=== PATIENT | female | born 1990 | race Asian ===

== ENCOUNTER 2016-11-06 21:37 | Inpatient (IN) ==
[2016-11-07] MEDS ORDERED: ACETAMINOPHEN 325 MG TABLET PO PRN ×2 (00:01→12:20)
[2016-11-07] MEDS ORDERED: BUTORPHANOL 1 MG/ML VIAL IV PRN (00:01)
[2016-11-07] MEDS ORDERED: ONDANSETRON 4 MG/2 ML VIAL IV PRN ×2 (00:01→12:20)
[2016-11-07 01:02] LABS: Basophils % 0.2 % (0.0-0.8); Eosinophils # 0.1 10*3/uL (0.0-0.87); Eosinophils % 0.5 % (0.00-10.9); Hematocrit 31.6 VOL% (35.7-47.0); Hemoglobin 10.8 GM/DL (12.0-16.0); Immature Granulocytes % 0.5 %; Immature Granulocytes Absolute 0.05 #; Lymphocytes # 2.1 10*3/uL (1.4-4.0); Lymphocytes % 22.8 % (21.3-54.2); Mean Corpuscular HGB Conc 34.2 GM/DL (32-36); Mean Corpuscular Hemoglobin 29 PG (27-34); Mean Corpuscular Volume 85.6 FL (87-102); Mean Platelet Volume 10.2 FL (9.6-12.0); Monocytes # 0.7 10*3/uL (0.11-0.8); Monocytes % 7.9 % (1.7-12.7); Neutrophils # 6.4 10*3/uL (1.4-7.4); Neutrophils % 68.1 % (38.7-73.9); Platelet Count 309 10*3/uL (130-400); Red Blood Count 3.69 10*6/uL (3.8-5.5); Red Cell Distribution Width 13.2 % (9.3-17.3); White Blood Count 9.4 10*3/uL (4.5-13.71)
[2016-11-07 01:31] LABS: Alanine Aminotransferase 15 U/L (13-56); Albumin 2.8 G/DL (3.4-5.0); Alkaline Phosphatase 90 U/L (45-117); Aspartate Amino Transferase 19 U/L (0-37); Bilirubin,Total < 0.39 MG/DL (0.2-1.0); Blood Urea Nitrogen 15 MG/DL (7-18); Calcium 8.5 MG/DL (8.5-10.1); Glucose 74 MG/DL (74-106); Osmolality,Calculated 278.4 MOS/KG (273-304); Sodium 140 MMOL/L (136-145); Total Protein 6.9 G/DL (6.4-8.3)
[2016-11-07] MEDS ORDERED: OXYTOCIN/LR 20 UNIT/1,000 ML BAG IV ONE ×2 (04:47→12:20)
[2016-11-07] MEDS ORDERED: LACTATED RINGERS 1,000 ML IV SCH (05:00)
[2016-11-07] MEDS ORDERED: PROMETHAZINE 25 MG/1 ML VIAL IM ONE (07:48)
[2016-11-07] MEDS ORDERED: ePHEDrine 50 MG/ML AMP IV PRN (07:48)
[2016-11-07] MEDS ORDERED: FAMOTIDINE 20 MG/2 ML VIAL IV ONE (07:48)
[2016-11-07] MEDS ORDERED: CITRIC ACID/SODIUM CITRATE 30 ML UDCUP PO ONE (07:48)
[2016-11-07] MEDS ORDERED: fentaNYL 2 MCG/ROPIV 0.2% EPID 150 ML EPIDURAL SCH (07:48)
[2016-11-07] MEDS ORDERED: ONDANSETRON 4 MG/2 ML VIAL IV ONE (07:48)
[2016-11-07] MEDS ORDERED: diphenhydrAMINE 50 MG/1 ML VIAL IV PRN ×2 (07:48)
[2016-11-07] MEDS ORDERED: hydrOXYzine HCL 25 MG/1 ML VIAL IM PRN (07:48)
[2016-11-07] MEDS ORDERED: OXYTOCIN/LR 20 UNIT/1,000 ML BAG IV SCH (08:00)
[2016-11-07] MEDS ORDERED: ePHEDrine 50 MG/ML AMP ONE (08:12)
[2016-11-07] MEDS ORDERED: LIDOCAINE 1% 50 ML VIAL ONE (08:12)
--- NOTE | 2016-11-07 08:14 | OB/GYN History & Physical ---
History of Present Illness Chief complaint: at 38 weeks and polyhydramnios History of present illness: Ms. Valdovinos is a 26 year old female 1 para 0 who was seen in conjunction with Dr. Dominguez services in [place] for initially what appeared to be an irregular heartbeat on ultrasound and later polyhydramnios. She was worked up by Dr. Dominguez who followed with serial ultrasounds under the appropriate testing and found no etiology for any the above. She is consequently admitted for elective induction secondary to polyhydramnios Home Medications Medication Instructions Recorded Confirmed Type Pnv No.122/Iron/Folic Acid 1 tablet PO DAILY 11/06/16 11/06/16 History [ Multi Tablet] Allergies Allergy/AdvReac Type Severity Reaction Status Date / Time No Known Allergies Allergy Verified 11/07/16 00:00 12 point system: reviewed and no additional remarkable complaints except as stated Medical,Surgical,& Family Hx - Medical History Reproductive: History of: Ectopic (2014) No history of: Complication, Reproductive Problems - Surgical History Reproductive Surgeries: Patient denies;: Section - Family History Family History: Reports;: Family Diabetes, Family Hypertension Denies;: Family Anesthesia Reaction, Family Cancer, Family Heart Disease, Family Hematology, Family Psychiatric Problems, Family Stroke, Additional Family History - Social History Smoking Status: Never smoker Frequency of Alcohol Use: None Type of Drug Use: None 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 - Constitutional Vitals: Vital Signs Temp Pulse Resp BP Pulse Ox 11/07/16 04:00 98.1 F 86 18 125/83 11/06/16 21:44 98.5 F 104 H 20 129/87 99 General appearance: normal weight, no acute distress - Head Head exam: Present: normal inspection, normocephalic, atraumatic - Eye Eye exam: Present: EOMI Pupils: Present: ANGELI - Neck Neck exam: Present: normal inspection - Respiratory Respiratory exam: Present: clear to auscultation bilaterally - Breast Breasts: as per HPI Menstruation: as per HPI - Cardiovascular Cardiovascular exam: Present: regular rate and rhythm - GI/Abdominal GI/Abdominal exam: Present: normal bowel sounds - Extremities Exam Extremities exam: Present: normal inspection, normal capillary refill - Back Exam Back exam: Present: normal inspection - Neurological Exam Neurological exam: Present: alert, oriented X3 - Psychiatric Psychiatric exam: Present: normal affect, normal mood - Skin Skin exam: Present: normal color, warm Assessment and Plan (1) with 38 completed weeks gestation Status: Acute Current Visit: Yes (2) Polyhydramnios Status: Acute Current Visit: Yes (3) Elective induction of labor planned Status: Acute Current Visit: Yes Results - Labs CBC & BMP: 11/07/16 00:34 11/07/16 00:34 Quality Measures - VTE Contraindication to Pharmacological VTE Prophylaxis: Clinical assessment deems Pt at low risk, no prophalaxis needed
[2016-11-07 09:57] LABS: INR 0.9; PT Patient Result 9.7 SECS; Partial Thromboplastin Time 26.1 SECS (0-40)
[2016-11-07 10:25] LABS: Apearance,Urine CLEAR (Clear); Bacteria,Urine Occasional /HPF (Few); Bilirubin,Urine Negative (Negative); Blood, Urine Negative (Negative); Glucose,Urine (UA) Negative (Negative); Ketones,Urine Negative (Negative); Mucus,Urine Occasional /LPF (Occasional); Nitrite,Urine Negative (Negative); Protein,Urine Negative; RBC,Urine 1 /HPF (0-4); Urine Color Straw (Yellow); Urine Specific Gravity 1.005 (1.001-1.035); Urine Urobilinogen < 2.0 EU/DL (0.2-1.0); WBC,Urine 1 /HPF (0-6)
[2016-11-07] MEDS ORDERED: WITCH HAZEL PADS 100/JAR TOP PRN (12:20)
[2016-11-07] MEDS ORDERED: BISACODYL 10 MG SUPP RECTAL PRN (12:20)
[2016-11-07] MEDS ORDERED: BENZOCAINE 20%/MENTHOL 0.5% SPRAY 56 GM CAN TOP PRN (12:20)
[2016-11-07] MEDS ORDERED: oxyCODONE/ACETAMINOPHEN 5-325 MG TABLET PO PRN (12:20)
[2016-11-07] MEDS ORDERED: LANOLIN 50% CREAM 0.3 OZ TUBE TOP PRN (12:20)
[2016-11-07] MEDS ORDERED: HYDROCORTISONE 2.5% RECTAL CREAM 30 GM TUBE TOP PRN (12:20)
--- NOTE | 2016-11-07 12:20 | OB/GYN Progress Note ---
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 Mansfield dictating vaginal delivery And in LDR environment under sterile conditions, the patient progressed to completely dilated. She was allowed to push and under [epidural] anesthesia had a palate vacuum vaginal delivery of a live born [male] unweighed Apgars pending over a [second-degree midline episiotomy]. The 's nose and oropharynx were bulb and DeLee suctioned, and the infant had spontaneous cry after delivery. The cord was doubly clamped and cut and the was handed over to the pediatric team for care. Cord blood was obtained the placenta delivered spontaneously intact and IV Pitocin was done. There were no cervical tears. There were no periurethral tears. The second-degree midline episiotomy was repaired to monitor procedure in usual fashion under epidural anesthesia. Indication for vacuum was poor maternal expulsive effort. Presentation was occiput anterior was here degrees rotation at +3 station. The vacuum was disarticulated through the peritoneum anterior posterior shoulders were delivered without difficulty. There is noted be a nuchal cord 1 which was noted to be short and thin. Estimated blood loss was 250 mL. There were no complications. The bladder was emptied using a catheter prior to delivery. All sponge needle and instrument counts were correct 3 at the end of the delivery. The was taken to nursery in stable condition Exam LICENSED PRACTICAL NURSE INSTRUCTOR - Constitutional Vitals: Vital Signs Temp Pulse Resp BP Pulse Ox 11/07/16 04:00 98.1 F 86 18 125/83 11/06/16 21:44 98.5 F 104 H 20 129/87 99 Results - Labs CBC & BMP: 11/07/16 00:34 11/07/16 00:34
[2016-11-07] MEDS ORDERED: MEASLES/MUMPS/RUBELLA VACCINE 0.5 ML VIAL SUBCUT ONE (13:00)
[2016-11-07] MEDS ORDERED: DIPH/TET/ACEL PERT BOOSTER VACCINE 0.5 ML VIAL IM ONE (13:00)
[2016-11-07] MEDS ORDERED: RHO(D) IMMUNE GLOBULIN 300 MCG SYRINGE IM ONE (13:00)
[2016-11-07] MEDS: IBUPROFEN 800 MG TABLET PO PRN (16:00)
[2016-11-07] MEDS: DOCUSATE SODIUM 100 MG CAPSULE PO SCH (21:00)
[2016-11-07] MEDS: oxyCODONE/ACETAMINOPHEN 5-325 MG TABLET PO PRN (21:00)
[2016-11-08 04:49] LABS: Basophils % 0.1 % (0.0-0.8); Eosinophils # 0.1 10*3/uL (0.0-0.87); Eosinophils % 0.7 % (0.00-10.9); Hematocrit 27.2 VOL% (35.7-47.0); Hemoglobin 9.1 GM/DL (12.0-16.0); Immature Granulocytes % 0.6 %; Immature Granulocytes Absolute 0.08 #; Lymphocytes # 1.8 10*3/uL (1.4-4.0); Lymphocytes % 13.2 % (21.3-54.2); Mean Corpuscular HGB Conc 33.5 GM/DL (32-36); Mean Corpuscular Hemoglobin 29 PG (27-34); Mean Corpuscular Volume 86.9 FL (87-102); Mean Platelet Volume 9.9 FL (9.6-12.0); Monocytes % 6.9 % (1.7-12.7); Neutrophils # 10.8 10*3/uL (1.4-7.4); Neutrophils % 78.5 % (38.7-73.9); Platelet Count 213 10*3/uL (130-400); Red Blood Count 3.13 10*6/uL (3.8-5.5); Red Cell Distribution Width 13.5 % (9.3-17.3); White Blood Count 13.8 10*3/uL (4.5-13.71)
--- NOTE | 2016-11-08 07:50 | OB/GYN Progress Note ---
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: Subj Interval history: Patient is doing well she is eating ambulating and voiding She is afebrile and her vital signs are stable Her fundus is firm and contracted She has decreased lochia Assessment #1 day #1 doing well Plan continue present management with expected DC tomorrow Exam EDISCOVERY PROJECT MANAGER - Constitutional Vitals: Vital Signs Temp Pulse Resp BP Pulse Ox 11/08/16 07:41 97.6 F 94 H 16 124/87 99 11/08/16 03:59 98.5 F 106 H 20 124/85 100 11/07/16 23:52 97.8 F 106 H 20 118/73 99 11/07/16 19:47 97.7 F 86 18 115/63 97 11/07/16 17:10 93 H 18 118/78 98 11/07/16 16:10 98.3 F 102 H 18 124/87 98 11/07/16 15:10 91 H 18 117/85 98 11/07/16 14:40 89 18 117/77 98 11/07/16 14:10 98.0 F 89 18 117/74 98 Results - Labs CBC & BMP: 11/08/16 04:32 11/07/16 00:34
--- NOTE | 2016-11-08 07:53 | Discharge Summary ---
Hospital Course - Hospital Course Hospital Course: patient did well. She had quick return of bowel and bladder function. Joint afebrile and normotensive throughout her hospitalization. She is consequently discharged on postoperative day #2 on a regular diet Diagnosis - Discharge Diagnosis (1) with 38 completed weeks gestation Status: Acute (2) Polyhydramnios Status: Acute (3) Elective induction of labor planned Status: Acute Specialty Discharge - Follow Up or Referrals Discharge Plan - Discharge Data Disposition: Disch To Home/Self Care Condition at Discharge: Stable Discharge Diet: regular diet Activity: increase activity as tolerated, other (pelvic rest) Hygiene: may shower Weight Bearing at Discharge: full weight bearing Driving: no restrictions Contact your physician if you experience:: fever over 101, Difficulty voiding, Redness or swelling, Nausea/Vomiting, Shortness of breath, Bleeding, pain uncontrolled by pain medications - Discharge Medications New Acetamin/Codeine 300-30 Tab [Tylenol/Codeine #3] 1 tablet PO Q4H PRN #15 tablet PRN Reason: Abdominal Pain Continue Pnv No.122/Iron/Folic Acid [ Multi Tablet] 1 tablet PO DAILY - Follow Up or Referral Follow Up: Khanh Mansfield MD [Physician] - 2 Weeks - Forms/Instructions Instructions: Perineal Care (DC), Vaginal Delivery (DC), Bleeding (DC) Exam - Constitutional Vitals: Period Temp Pulse Resp BP Sys/Guevara Pulse Ox Last 24 Hr 97.6 F-98.5 F 86-106 16-20 115-124/63-87 97-100 Discharge Results Labs on day of discharge: Labs from last 24 hours 11/08/16 11/07/16 11/07/16 04:32 09:42 08:50 WBC 13.8 H D RBC 3.13 L Hgb 9.1 L Hct 27.2 L MCV 86.9 L MCH 29 MCHC 33.5 RDW 13.5 Plt Count 213 D MPV 9.9 Neut % (Auto) 78.5 H Lymph % (Auto) 13.2 L [place] % (Auto) 6.9 Eos % (Auto) 0.7 Baso % (Auto) 0.1 Neut # (Auto) 10.8 H Lymph # (Auto) 1.8 [place]ack[place] # (Auto) 1.0 H Eos # (Auto) 0.1 Baso # (Auto) 0.0 Immature Gran % 0.6 Nucleated RBC % 0.0 Immature Gran # 0.08 Nucleated RBCs # 0.00 INR 0.9 PT Patient/Control Mix 9.7 Fibrinogen 383 Circ Anticoag PTT 26.1 Uric Acid Urine Color Straw Urine Appearance Clear Urine pH 7.0 Ur Specific [place] 1.005 Urine Protein Negative Urine Glucose (UA) Negative Urine Ketones Negative Urine Blood Negative Urine Nitrate Negative Urine Bilirubin Negative Urine Urobilinogen < 2.0 H Urine Leukocytes Negative Urine RBC 1 Urine WBC 1 Urine Bacteria Occasional Urine Mucus Occasional Ur Culture Indicated? Not indicated 11/07/16 00:31 WBC RBC Hgb Hct MCV MCH MCHC RDW Plt Count MPV Neut % (Auto) Lymph % (Auto) [place] % (Auto) Eos % (Auto) Baso % (Auto) Neut # (Auto) Lymph # (Auto) [place] # (Auto) Eos # (Auto) Baso # (Auto) Immature Gran % Nucleated RBC % Immature Gran # Nucleated RBCs # INR PT Patient/Control Mix Fibrinogen Circ Anticoag PTT Uric Acid 5.0 Urine Color Urine Appearance Urine pH Ur Specific [place] Urine Protein Urine Glucose (UA) Urine Ketones Urine Blood Urine Nitrate Urine Bilirubin Urine Urobilinogen Urine Leukocytes Urine RBC Urine WBC Urine Bacteria Urine Mucus Ur Culture Indicated? DS: Provider Date of admission: 11/07/16 00:01 Primary care physician: . No PCP Attending physician on admission: Magnolia Hooker Consults: 11/07/16 00:01 Consult to Anesthesiology [CONS] Routine Consulting Provider: Reason for Anesthesiology: Epidural Consult Comment: Epidural for pain managment 11/07/16 12:20 Consult to Analytical Consultant [CONS] Routine Consult Analytical Consultant: Breast Feeding Discharging clinician: Magnolia Hooker Expected date of discharge: 11/08/16
[2016-11-08] MEDS: MULTIVITAMIN (PRENATAL) TABLET PO SCH (08:42)
[2016-11-08] MEDS: IBUPROFEN 800 MG TABLET PO PRN ×2 (08:42→14:39)
[2016-11-08] MEDS: FERROUS SULFATE 325 MG TABLET PO SCH ×2 (08:42→20:09)
[2016-11-08] MEDS: DOCUSATE SODIUM 100 MG CAPSULE PO SCH ×2 (08:42→20:09)
--- NOTE | 2016-11-08 10:57 | Physician Query Form ---
CLICK EDIT DOCUMENT TO SELECT QUERY ANSWER --> OK --> SIGN Mirian Mcclellan RN, CCDS Certified Clinical Tooth Cutter [place] Director of Clinical Documentation W) [phone] (f) [phone] [email or web address] PROVIDERS: Make your selection(s) from the choices in EACH section by typing an "x" and enter comments in the comment section. Please use your independent medical judgment in providing your response. This request does not imply that any particular answer is desired or expected. CLINICAL INDICATORS: (Providers should not edit this section) Patient admitted for elective delivery requiring vacuum extraction of male infant for "poor maternal expulsive effort". Can you please provide an indication for vacuum extraction? Based on the above, could you clarify the appropriate diagnosis, if significant , that supports the above abnormalities and additional evaluation, monitoring, and/or treatment rendered: ( ) Maternal exhaustion ( ) Distress ( ) Labor complication ( ) Attempted or Failed delivery ( ) Other, please specify: ( ) Clinically unable to determine COMMENTS: Use of terms such as suspected, likely, or probable (associated with a specific diagnosis that is being evaluated, monitored, or treated as if it exists) are acceptable and can be restated in the discharge summary if not ruled out. LEIF
[2016-11-09] MEDS: oxyCODONE/ACETAMINOPHEN 5-325 MG TABLET PO PRN (01:30)
[2016-11-09] MEDS: IBUPROFEN 800 MG TABLET PO PRN (01:30)
[2016-11-09 07:24] VITALS: BP 122/72
[2016-11-09] MEDS: MULTIVITAMIN (PRENATAL) TABLET PO SCH (08:45)
[2016-11-09] MEDS: DOCUSATE SODIUM 100 MG CAPSULE PO SCH (08:45)
[2016-11-09] MEDS: FERROUS SULFATE 325 MG TABLET PO SCH (08:45)
--- NOTE | 2016-11-14 10:20 | Physician Query Form ---
CLICK EDIT DOCUMENT TO SELECT QUERY ANSWER --> OK --> SIGN Mirian Mcclellan RN, CCDS Certified Clinical Physician Pediatrician Director of Clinical Documentation W) [phone] (f) [phone] [email or web address] PROVIDERS: Make your selection(s) from the choices in EACH section by typing an "x" and enter comments in the comment section. Please use your independent medical judgment in providing your response. This request does not imply that any particular answer is desired or expected. CLINICAL INDICATORS: (Providers should not edit this section) Patient admitted for elective delivery requiring vacuum extraction of male infant for "poor maternal expulsive effort". Can you please provide an indication for vacuum extraction? Based on the above, could you clarify the appropriate diagnosis, if significant , that supports the above abnormalities and additional evaluation, monitoring, and/or treatment rendered: ( ) Maternal exhaustion ( ) Distress ( ) Labor complication ( ) Attempted or Failed delivery ( ) Other, please specify: ( ) Clinically unable to determine COMMENTS: Use of terms such as suspected, likely, or probable (associated with a specific diagnosis that is being evaluated, monitored, or treated as if it exists) are acceptable and can be restated in the discharge summary if not ruled out. LEIF
== END 2016-11-09 12:50 | disposition home or self-care (01) | DRG 775 ==
LOC: N.LDOUT 21:37 → N.LD 21:40 → N.OB 11-07 14:17
PROVIDERS: ADMIT Specialist; ATTEND Specialist

== ENCOUNTER 2017-08-18 22:27 | Observation (INO) ==
[2017-08-18] MEDS ORDERED: diphenhydrAMINE 50 MG/1 ML VIAL IV STA (22:46)
[2017-08-18] MEDS ORDERED: FAMOTIDINE 20 MG/2 ML VIAL IV STA (22:47)
[2017-08-18] MEDS ORDERED: methylPREDNISolone SOD SUC 125 MG/2 ML VIAL IV STA (22:47)
[2017-08-18] MEDS ORDERED: SODIUM CHLORIDE 0.9% 500 ML IV STA (22:47)
[2017-08-18] MEDS ORDERED: EPINEPHrine 1 MG/ML VIAL SUBCUT STA (22:47)
[2017-08-18] MEDS ORDERED: diphenhydrAMINE 50 MG/1 ML VIAL ONE (22:50)
[2017-08-18] MEDS ORDERED: methylPREDNISolone SOD SUC 125 MG/2 ML VIAL ONE (22:51)
[2017-08-18] MEDS ORDERED: FAMOTIDINE 20 MG/2 ML VIAL IV ONE (22:51)
[2017-08-18] MEDS ORDERED: EPINEPHrine 1 MG/ML VIAL ONE (22:52)
[2017-08-18 23:22] LABS: Basophils % 0.5 % (0.0-0.8); Eosinophils # 0.1 10*3/uL (0.0-0.87); Eosinophils % 1.3 % (0.00-10.9); Hematocrit 43.2 VOL% (35.7-47.0); Immature Granulocytes % 0.2 %; Immature Granulocytes Absolute 0.02 #; Lymphocytes # 4.4 10*3/uL (1.4-4.0); Lymphocytes % 51.5 % (21.3-54.2); Mean Corpuscular HGB Conc 34.7 GM/DL (32-36); Mean Corpuscular Hemoglobin 31 PG (27-34); Mean Corpuscular Volume 88.2 FL (87-102); Monocytes # 0.9 10*3/uL (0.11-0.8); Monocytes % 10.3 % (1.7-12.7); Neutrophils # 3.1 10*3/uL (1.4-7.4); Neutrophils % 36.2 % (38.7-73.9); Platelet Count 287 T/CUMM (130-400); White Blood Count 8.6 T/CUMM (4-12)
[2017-08-18 23:57] LABS: Alanine Aminotransferase 18 U/L (13-56); Albumin 4.3 G/DL (3.4-5.0); Alkaline Phosphatase 64 U/L (45-117); Aspartate Amino Transferase 17 U/L (0-37); Bilirubin,Total < 0.39 MG/DL (0.2-1.0); Blood Urea Nitrogen 18 MG/DL (7-18); Calcium 8.3 MG/DL (8.5-10.1); Glucose 89 MG/DL (74-106); Osmolality,Calculated 277.5 MOS/KG (273-304); Sodium 139 MMOL/L (136-145); Total Protein 7.9 G/DL (6.4-8.3)
[2017-08-19] MEDS ORDERED: EPINEPHrine 1 MG/ML VIAL SUBCUT STA (00:01)
[2017-08-19] MEDS ORDERED: EPINEPHrine 1 MG/ML VIAL ONE (00:12)
[2017-08-19 01:34] LABS: Eosinophils 1 % (0-10); Lymphocytes 51 % (20-55); Segmented Neutrophils 41 % (50-85)
[2017-08-19 01:53] LABS: Hypochromasia 1+; Platelet Estimate Normal; Total Cells Counted 100
[2017-08-19] MEDS ORDERED: DOCUSATE SODIUM 100 MG CAPSULE PO PRN (02:18)
[2017-08-19] MEDS ORDERED: EPINEPHrine 1 MG/ML VIAL IM PRN (02:18)
[2017-08-19] MEDS ORDERED: ONDANSETRON 4 MG/2 ML VIAL IV PRN (02:18)
[2017-08-19] MEDS ORDERED: SODIUM CHLORIDE 0.9% 1,000 ML IV SCH (02:18)
[2017-08-19] MEDS ORDERED: PANTOPRAZOLE 40 MG TABLET PO SCH (09:00)
[2017-08-19] MEDS ORDERED: methylPREDNISolone SOD SUC 125 MG/2 ML VIAL IV ONE (09:00)
[2017-08-19] MEDS ORDERED: ENOXAPARIN 40 MG/0.4 ML SYRINGE SUBCUT SCH (09:00)
[2017-08-19 12:53] VITALS: BP 105/64
== END 2017-08-19 14:53 | disposition home or self-care (01) ==
LOC: N.ED 22:27 → N.EDINP 08-19 01:09 → INTOOBSV 08-19 01:09 → N.EDINP 08-19 02:05 → N.4E 08-19 02:31
PROVIDERS: ADMIT Internal Medicine Geriatric Medicine; ATTEND Internal Medicine Geriatric Medicine